=== PATIENT | female | born 1995 | race Caucasian/White ===

== ENCOUNTER 2021-03-24 17:49 | Emergency (ER) | payer OTHER ==
--- NOTE | 2021-03-24 18:26 | NUR ---
PT WAS CALLED IN LOBBY AND OUTSIDE, NO ANSWER
--- NOTE | 2021-03-24 18:47 | NUR ---
LWBS AT THIS TIME.
== END 2021-03-24 19:23 | disposition left against medical advice (07) ==
LOC: MED 17:49
DX: Z53.21 Procedure and treatment not carried out due to patient leaving prior to being seen by health care provider (principal)

== ENCOUNTER 2022-01-06 14:06 | Emergency (ER) | payer OTHER ==
[~2022-01-06] VITALS: Ht 157.5 cm; Wt 69.4 kg
--- NOTE | 2022-01-06 14:26 | NUR ---
CALLED PT NOT SEEN IN LOBBY
[2022-01-06 14:32] VITALS: BP 119/72
--- NOTE | 2022-01-06 15:30 | NUR ---
26Y/O FEMALE BIB SELF N/V/D/ABD PAIN, BRIGHT RED SPOTS IN STOOL. PER PT SHE IS JUST "POOPING BLOOD AND MUCUS", PER PT SHE HAD GLEN IN THE BOX 2 TACOS AND CURLY FRIES AT 0200 AND NOTED THE S/S ON 0800H TODAY NK[facility] PMH: HEMORRHOIDS RX: TUMS, KAOPECTATE TODAY
--- NOTE | 2022-01-06 15:45 | NUR ---
SEEN BY RACHELLE MARVIN
[2022-01-06] MEDS ORDERED: BEN10 PO (16:01)
[2022-01-06] MEDS ORDERED: ONDA-188 PO (16:01)
--- NOTE | 2022-01-06 16:11 | NUR ---
Patient discharged with v/s stable. Written and verbal after care instructions given and explained. Patient alert, oriented and verbalized understanding of instructions. Ambulatory with steady gait. All questions addressed prior to discharge. ID band removed. Patient advised to follow up with PMD. Rx of JASPER SARABIA ODT given. Patient educated on indication of medication including possible reaction and side effects. Opportunity to ask questions provided and answered.
== END 2022-01-06 16:11 | disposition home or self-care (01) ==
LOC: MED 14:06
DX: K52.9 Noninfective gastroenteritis and colitis, unspecified (principal); R11.2 Nausea with vomiting, unspecified; Z79.899 Other long term (current) drug therapy
CPT/HCPCS: 81002; 81025; 99283